=== PATIENT | male | born 1995 | race Caucasian/White ===

== ENCOUNTER 2024-08-19 17:01 | Emergency (ER) | payer OTHER ==
[2024-08-19 17:11] VITALS: BP 140/79; PULSE 88; RESP 18; TEMP 98.3; BMI 28.2
[2024-08-19] MEDS ORDERED: LIDOCAINE HCL 1%, 10 MG/ML (50 mL VIAL) SQ ONE (17:48)
[2024-08-19] MEDS ORDERED: LIDOCAINE HCL 1%, 10 MG/ML (20ML VIAL) ONE (17:51)
[2024-08-19] MEDS ORDERED: DIPHTH,PERTUSS(ACELL),TET 0.5 ML DISP.SYRIN IM ONE (18:43)
[2024-08-19] MEDS ORDERED: BACITRACIN ZINC 15 GM TUBE TOPICAL OINTMENT ONE (19:00)
== END 2024-08-19 19:30 | disposition home or self-care (01) ==
LOC: JER 17:01 → JERFT 17:01
PROC: 0HQGXZZ Repair Left Hand Skin, External Approach (ICD-10-PCS; principal; 2024-08-19)
DX: S61.210A Laceration without foreign body of right index finger without damage to nail, initial encounter (principal); W31.2XXA Contact with powered woodworking and forming machines, initial encounter
CPT/HCPCS: 99283-25

== ENCOUNTER 2024-08-20 17:14 | Emergency (ER) | payer OTHER ==
[2024-08-20 17:23] VITALS: BP 137/74; PULSE 83; RESP 16; TEMP 98.4; BMI 27.4
[2024-08-20] MEDS ORDERED: DIPHTH,PERTUSS(ACELL),TET 0.5 ML DISP.SYRIN IM ONE (17:40)
[2024-08-20] MEDS: DIPHTH,PERTUSS(ACELL),TET 0.5 ML DISP.SYRIN IM ONE (17:44)
== END 2024-08-20 17:52 | disposition home or self-care (01) ==
LOC: JERFT 17:14
PROC: 3E0234Z Introduction of Serum, Toxoid and Vaccine into Muscle, Percutaneous Approach (ICD-10-PCS; principal; 2024-08-20)
DX: S61.211D Laceration without foreign body of left index finger without damage to nail, subsequent encounter (principal); Z23 Encounter for immunization
CPT/HCPCS: 90715; 99284-25